=== PATIENT | male | born 1960 | race Caucasian/White ===

== ENCOUNTER 2020-08-23 07:02 | Emergency (ER) | payer BC ==
[~2020-08-23] VITALS: Ht 175.3 cm; Wt 104.3 kg
[~2020-08-23 07:02] MED LIST: ESOM20 PO; Norco 10-325 T1 EACH PO; Zofran Odt4 MG SL
[2020-08-23] MEDS ORDERED: PREGABALIN75 MG PO (07:31)
[2020-08-23] MEDS ORDERED: TRAZ50 PO (07:31)
[2020-08-23] MEDS ORDERED: AMITRIPTYLINE H25 MG PO (07:32)
[2020-08-23] MEDS ORDERED: ZOLP5 PO (07:50)
== END 2020-08-23 07:35 | disposition home or self-care (01) ==
LOC: ER 07:02
DX: G47.00 Insomnia, unspecified (principal); Z79.899 Other long term (current) drug therapy
CPT/HCPCS: 99283

== ENCOUNTER 2020-09-08 15:31 | Emergency (ER) | payer BC ==
[~2020-09-08] VITALS: Ht 177.8 cm; Wt 102.1 kg
[~2020-09-08 15:31] MED LIST changes: +AMITRIPTYLINE H25 MG PO; +PREGABALIN75 MG PO; +TRAZ50 PO; +ZOLP5 PO
== END 2020-09-08 17:45 | disposition home or self-care (01) ==
LOC: ER 15:31
DX: M19.032 Primary osteoarthritis, left wrist (principal); Z88.6 Allergy status to analgesic agent; Z79.899 Other long term (current) drug therapy
CPT/HCPCS: 29125; 73110; 99283-25; A9270

== ENCOUNTER 2022-06-03 01:26 | Emergency (ER) | payer OTHER ==
[~2022-06-03] VITALS: Ht 177.8 cm; Wt 108.9 kg
[2022-06-03 02:31] LABS: BASOPHILS ABSOLUTE AUTO 0.04 K/mm3 (0.00-0.23); BASOPHILS PERCENT AUTO 1 % (0-2); EOSINOPHILS ABSOLUTE AUTO 0.06 K/mm3 (0.00-0.68); EOSINOPHILS PERCENT AUTO 1 % (0-6); Hematocrit 43.6 % (37.0-53.0); Hemoglobin 14.7 g/dL (13.5-17.5); IMMATURE GRAN ABSOLUTE AUTO 0.03 K/mm3 (0.00-0.10); IMMATURE GRAN PERCENT AUTO 0 % (0-1); LYMPHOCYTES PERCENT AUTO 14 % (21-46); MONOCYTES ABSOLUTE AUTO 0.59 K/mm3 (0.16-1.47); MONOCYTES PERCENT AUTO 7 % (4-13); Mean Corpuscular HGB 30.3 pg (26.0-34.0); Mean Corpuscular HGB Conc 33.7 g/dL (31.5-36.5); Mean Corpuscular Volume 90 fL (80-100); Mean Platelet Volume 9.2 fL (9.1-12.4); NEUTROPHILS ABSOLUTE AUTO 6.62 K/mm3 (1.96-9.15); NEUTROPHILS PERCENT AUTO 77 % (41-73); Platelet Count 257 K/mm3 (150-400); RDW Coefficient Variation 12.4 % (11.7-14.2); Red Blood Cell Count 4.85 M/mm3 (4.30-5.90); White Blood Cell Count 8.54 K/mm3 (4.00-11.30)
[2022-06-03 02:48] LABS: Bilirubin, Total 0.3 mg/dL (0.1-1.0); Bun/Creatinine Ratio 21.7 (12.0-20.0); Creatinine, Blood 1.15 mg/dL (0.60-1.20); Globulin, Blood 4.1 g/dL (2.2-4.0); Potassium, Blood 4.1 mmol/L (3.5-5.5); Total Protein, Blood 8.1 g/dL (6.4-8.2)
== END 2022-06-03 03:40 | disposition home or self-care (01) ==
LOC: ER 01:26
PROVIDERS: Student in an Organized Health Care Education/Training Program
DX: R10.13 Epigastric pain (principal); R11.0 Nausea; I10 Essential (primary) hypertension; Z88.6 Allergy status to analgesic agent; Z79.899 Other long term (current) drug therapy
CPT/HCPCS: 36415; 71045; 80053; 83690; 85025; 93005; 93010; A9270; J2270; J2405

== ENCOUNTER 2023-09-08 08:18 | Day surgery (SDC) | payer OTHER ==
[2023-09-08] VITALS (12 sets, daily range): BP systolic 129–143; BP diastolic 87–106
[~2023-09-08] VITALS: Ht 177.8 cm; Wt 117.5 kg
[~2023-09-08 08:18] MED LIST changes: +AMLO5 PO; +ATOR20 PO; +BUPR150ER PO; +Celexa20 MG PO; +HYDR1TAB94 PO; +LISI20 PO; +Lactated Ringer's 1,000 ML IV SCH; +NAPR220 PO; +OMEP20ER PO; +PREDNISONE TAPER; +SILVADENE TOP
[2023-09-08] MEDS ORDERED: FentaNYL Citrate 50 MCG/ML 2 ML Injection ONE ×2 (08:29→10:48)
[2023-09-08] MEDS ORDERED: propofoL 20 ML IV ONE ×2 (08:29→09:11)
[2023-09-08] MEDS ORDERED: CeFAZolin Sodium 2,000 MG in NS 100 ML IV SCH (08:35)
--- NOTE | 2023-09-08 08:38 | NUR ---
Ambulatory in Day SurgeryPre-Op teaching done. Pt verbalizes understanding. History, Chart, Medications and Allergies reviewed before start of procedure.Patient confirms NPO status and agrees with scheduled surgery. Patient States Post-Procedure ride home has been arranged.
[2023-09-08] MEDS ORDERED: Bupivacaine 0.5% HCl 5 MG/ML 30MLVIAL ONE (08:47)
[2023-09-08] MEDS ORDERED: Rocuronium Bromide 10 MG/ML 5ML Injection IV ONE (09:03)
[2023-09-08] MEDS ORDERED: Dexamethasone Sod Phos 10 MG/ML 1ML VIAL ONE (09:03)
[2023-09-08] MEDS ORDERED: Ondansetron HCl 2 MG / ML 2ML Vial ONE (09:03)
[2023-09-08] MEDS ORDERED: Midazolam HCl 1MG / ML 2ML Vial ONE (09:06)
[2023-09-08] MEDS ORDERED: ePHEDrine Sulfate 50 MG/ML 1ML Injection ONE (09:25)
[2023-09-08] MEDS ORDERED: Sugammadex Sodium 200 MG/2ML SDV (100 MG/ML) ONE ×2 (09:26→10:49)
[2023-09-08] MEDS ORDERED: Phenylephrine HCl 100 MCG/ML-NS 10MLSYR (1MG/10ML) ONE (09:51)
[2023-09-08] MEDS ORDERED: Ketorolac Tromethamine 30mg Vial ONE (09:58)
[2023-09-08] MEDS ORDERED: HYDROcodone 5-APAP 325 TAB PO PRN (11:25)
--- NOTE | 2023-09-08 12:28 | NUR ---
Discharge instructions reviewed with patient. Patient verbalizes understanding. Copy given to patient to take home. Prescription given to pt's . Dressings X4, C/D/I. Patient States Post-Procedure ride home has been arranged. Discharged via wheelchair to private car for ride home.
== END 2023-09-08 12:30 | disposition home or self-care (01) ==
LOC: ORSCMMR 08:18 → ORD 09:00 → ORSCMMR 12:30
PROVIDERS: Surgery
PROC: 0FT44ZZ Resection of Gallbladder, Percutaneous Endoscopic Approach (ICD-10-PCS; principal; 2023-09-08 09:00)
PROC: BF031ZZ Plain Radiography of Gallbladder and Bile Ducts using Low Osmolar Contrast (ICD-10-PCS; principal; 2023-09-08 09:00)
DX: K80.10 Calculus of gallbladder with chronic cholecystitis without obstruction (principal); I10 Essential (primary) hypertension; E78.5 Hyperlipidemia, unspecified; G47.33 Obstructive sleep apnea (adult) (pediatric); K21.9 Gastro-esophageal reflux disease without esophagitis; I25.2 Old myocardial infarction; E66.9 Obesity, unspecified; Z68.37 Body mass index [BMI] 37.0-37.9, adult
CPT/HCPCS: 74300; 88304; A9270; C1729; J0690; J1100; J1885; J2250; J2371; J2405; J2704; J3010; J7120

== ENCOUNTER → 2023-11-15 | Outpatient (CLI) | payer OTHER ==
[~2023-11-15] MED LIST changes: -Lactated Ringer's 1,000 ML IV SCH
[2023-11-15 16:00] LABS: Source, Urine Clean Catch
[2023-11-15 16:23] LABS: Bacteria Not Seen /hpf; Hyaline Casts TNTC /lpf (0-2); Red Blood Cells, Urine Not Seen /hpf (0-2); Renal Epithelial Rare /hpf (0-Rare); Squamous Epithelial Cells Rare /hpf (Few); White Blood Cells, Urine Not Seen /hpf (0-5)
== END ==
LOC: LAB 15:50 → LAB SHORT 15:50
PROVIDERS: Physician Assistant
DX: N17.9 Acute kidney failure, unspecified (principal)
CPT/HCPCS: 81015

== ENCOUNTER → 2023-11-25 | Outpatient (CLI) | payer OTHER ==
[2023-11-25 07:11] LABS: Source, Urine Clean Catch
[2023-11-25 10:42] LABS: Bacteria Rare /hpf; Red Blood Cells, Urine Not Seen /hpf (0-2); Squamous Epithelial Cells Rare /hpf (Few); White Blood Cells, Urine 0-2 /hpf (0-5)
== END ==
LOC: LAB SHORT 07:09 → LAB 07:09
PROVIDERS: Physician Assistant
DX: N17.9 Acute kidney failure, unspecified (principal)
CPT/HCPCS: 81015